=== PATIENT | female | born 1945 | race Hispanic/Latino ===

== ENCOUNTER 2016-11-26 06:25 | Inpatient (IN) ==
[2016-11-24 14:44] LABS: Appearance,Urine HAZY; Bacteria,Urine 0 /hpf (0); Bilirubin,Urine NEG (NEG); Color,Urine YELLOW; Glucose,Urine (UA) NEGATIVE (NEG); Leukocyte Esterase,Urine NEG /uL (NEG); Mucus,Urine MANY /hpf (0); Nitrate,Urine NEG (NEG); Protein,Urine NEG (NEG); Urine Blood 0.03 mg/dL (<0.03); Urine RBC 3 /hpf (0-1); Urine Squamous Epithelial Cell 2 /hpf (0-4); Urine WBC 3 /hpf (0-4); Urobilinogen,Urine NEG (NEG)
[2016-11-24 14:50] LABS: Basophils # (Auto) 0 K/mcL (0.0-0.3); Basophils % (Auto) 0.5 % (0.0-2.0); Eosinophils # (Auto) 0.1 K/mcL (0.0-0.7); Eosinophils % (Auto) 1.7 % (0.0-7.0); Lymphocytes # (Auto) 2.2 K/mcL (1.5-4.8); Lymphocytes % (Auto) 29.1 % (15.5-49.0); Mean Cell Volume 96.3 fL (80.0-100.0); Mean Corpuscular HGB Conc 33.1 g/dL (31.0-36.0); Mean Corpuscular Hemoglobin 31.9 pg (26.0-34.0); Monocytes # (Auto) 0.5 K/mcL (0.1-0.9); Monocytes % (Auto) 6.7 % (1.0-12.0); Platelet Count 346 K/mcL (140-440); RBC 4.83 M/mcL (4.00-5.20); Red Cell Distribution Width 13.8 % (11.5-14.5)
[2016-11-24 15:02] LABS: Blood Urea Nitrogen 12 mg/dl (8-23)
[~2016-11-26 06:25] MED LIST: ceFAZolin 1 GM VIAL IV SCH
[2016-11-26] MEDS ORDERED: KETOROLAC 30 MG, ROPIVACAINE HCL/PF 49.5 ML, EPINEPHrine 0.5 MG, 0.9 % SODIUM CHLORIDE ... IJ SCH (06:30)
[2016-11-26] MEDS ORDERED: PROPOFOL 200 MG/20 ML VIAL IV ONE (08:57)
[2016-11-26] MEDS ORDERED: LIDOCAINE HCL/PF 100 MG/5 ML SYRINGE IV ONE (08:57)
[2016-11-26] MEDS ORDERED: ONDANSETRON 4 MG/2 ML VIAL ONE (08:57)
[2016-11-26] MEDS ORDERED: PHENYLEPHRINE 10 MG/ML VIAL ONE (08:57)
[2016-11-26] MEDS ORDERED: KETAMINE 10 MG/ML ML ONE (08:57)
[2016-11-26] MEDS ORDERED: MIDAZOLAM 2 MG/2 ML VIAL ONE (08:57)
[2016-11-26] MEDS ORDERED: GLYCOPYRROLATE 0.2 MG/ML VIAL IV ONE (08:57)
[2016-11-26] MEDS ORDERED: MAGNESIUM HYDROXIDE 30 ML ORAL.SUSP PO PRN (10:14)
[2016-11-26] MEDS ORDERED: TRANEXAMIC ACID 1,000 MG/10 ML VIAL IV ONE (10:14)
[2016-11-26] MEDS ORDERED: POLYETHYLENE GLYCOL 3350 17 GM PACKET PO PRN (10:14)
[2016-11-26] MEDS ORDERED: BISACODYL 10 MG SUPP.RECT PR PRN (10:14)
[2016-11-26] MEDS ORDERED: FLEETS ADULT ENEMA PR PRN (10:14)
[2016-11-26] MEDS ORDERED: ONDANSETRON 4 MG/2 ML VIAL IV PRN ×2 (10:14→10:16)
[2016-11-26] MEDS ORDERED: BENZOCAINE/MENTHOL 1 LOZENGE PO PRN ×2 (10:14→10:16)
[2016-11-26] MEDS ORDERED: fentaNYL 100 MCG/2 ML VIAL IV PRN (10:16)
[2016-11-26] MEDS ORDERED: IPRATROPIUM/ALBUTEROL 3 ML AMPUL.NEB NEB PRN (10:16)
[2016-11-26] MEDS ORDERED: METOPROLOL TARTRATE 5 MG/5 ML VIAL IV PRN (10:16)
[2016-11-26] MEDS ORDERED: MEPERIDINE 25 MG/ML SYRINGE IV PRN (10:16)
[2016-11-26] MEDS ORDERED: METHOCARBAMOL 1,000 MG/10 ML VIAL IV PRN (10:16)
[2016-11-26] MEDS ORDERED: HYDROmorphone 2 MG/ML SYRINGE IV PRN (10:16)
[2016-11-26] MEDS ORDERED: ePHEDrine 50 MG/ML AMPUL IV PRN (10:16)
[2016-11-26] MEDS ORDERED: GENTAMICIN SULFATE 800 MG/20 ML VIAL IR ONE (10:24)
--- NOTE | 2016-11-26 10:28 | Orthopedic Procedure Note ---
Date of procedure: Note initiated : 11/26/16 at 10:26 am Service Date, if different from initiated Date: [] Pre-op diagnosis: Painful left knee replacement Post-op diagnosis: same Procedure: synovectomy, liner exchange Grafts/Implants: SNN liner Anesthesia: GETA Surgeon: Alex Barry Finishing Area Operator: Mauricio Godfrey Estimated blood loss: 100 Pathology: other (synovial bx) Condition: stable Disposition: PACU
[2016-11-26] MEDS ORDERED: LACTATED RINGERS 1,000 ML IV SCH (10:30)
[2016-11-26] MEDS ORDERED: ACETAMINOPHEN 1,000 MG/100 ML BOTTLE IV SCH (11:00)
[2016-11-26] MEDS ORDERED: MEPERIDINE 25 MG/ML SYRINGE IV ONE (11:42)
--- NOTE | 2016-11-26 12:14 | XRay Report ---
CLINICAL INFORMATION: Post-op total knee COMPARISON: None. FINDINGS: Total knee prostheses is anatomically aligned. No osseous abnormalities. Soft tissue swelling seen as expected IMPRESSION: Negative Interpreted and Authenticated by: Jayme Key 11/26/16
--- NOTE | 2016-11-26 12:46 | Operative Note ---
DATE OF OPERATION: 11/26/2016 PREOPERATIVE DIAGNOSIS: Painful left total knee replacement. POSTOPERATIVE DIAGNOSIS: Synovitis over the left patella and flexion instability of the left knee. OPERATION: 1. Liner exchange of the tibial liner. 2. Synovectomy peripatellar area. SURGEON: Alex Barry MD PHLEBOTOMIST MEDICAL LAB ASSISTANT: Mauricio Godfrey PA-C ANESTHESIA: General done by Dr. Rose. SUMMARY OF PROCEDURE: General anesthesia was attained. After prepping and draping the patient's previous incision was reopened. The incision was taken down sharply to the quadriceps and medial retinacular layer. These two structures were split longitudinally. I freed up the patella which showed a little bit of low baja on preoperative x-rays. I could tawanda the patella until I did perform a lateral release. The patella was then mobilized laterally. The patella was nearly covered with a thickened synovium. This was debrided sharply with a Bovie and knife. The patella itself showed an absolutely pristine surface and was not loose on probing with a Fentress elevator. Attention was then turned to the weightbearing joint. We examined the joint and there was subtle instability medially and laterally in flexion. I therefore did trials with slightly thicker inserts and we used the orthosensor technology to check the gap balancing. We got an excellent combination of stability on the computer system with a 13 mm insert. A balance was noted between the medial and lateral compartments well within the balanced zone on the ortho extensor. We therefore inserted a 13 mm high flexion component. The wound was copiously irrigated. The knee was injected with poly mobile solution for postoperative analgesia. No tourniquet was used. After vigorous irrigation and then soaking the joint in IrriSept, Irrisept was irrigated. The quadriceps and medial retinaculum were closed in 30 degrees of flexion. The quadriceps was closed with buried #2 FiberWire sutures. The medial retinaculum was closed with a running Maxon and the quadriceps oversewn with a running 0 Maxon as well. The subcutaneous tissue was closed with 2-0 Monocryl. The skin was closed with Dermabond. A sterile compressive dressing was applied. During the surgery we took two swabs for culture and one synovial biopsy which was also sent for culture. ESTIMATED BLOOD LOSS: 100 mL TOURNIQUET: None. [email or web address] Job ID: [id number] Doc ID: [id number] Alex ROJASD
[2016-11-26] MEDS: 0.9 % SODIUM CHLORIDE 1,000 ML IV SCH ×3 (13:35→21:47)
[2016-11-26] MEDS: 0.9 % SODIUM CHLORIDE 10 ML SYRINGE IV SCH ×2 (13:43→21:50)
[2016-11-26] MEDS: HYDROcodone/APAP 10/325MG TABLET PO PRN ×3 (14:54→23:17)
[2016-11-26] MEDS: METHOCARBAMOL 750 MG TABLET PO PRN (17:09)
[2016-11-26] MEDS: ceFAZolin 1 GM VIAL IV SCH (17:09)
[2016-11-26] MEDS: LISINOPRIL 20 MG TABLET PO SCH (20:59)
[2016-11-26] MEDS: DOCUSATE SODIUM 100 MG CAPSULE PO SCH (21:00)
[2016-11-26] MEDS: FISH OIL 1,000 MG CAPSULE PO SCH (21:00)
[2016-11-26] MEDS: ASPIRIN 325 MG ENTERIC COATED TABLET PO SCH (21:00)
[2016-11-26] MEDS: ASCORBIC ACID 500 MG TABLET PO SCH (21:00)
[2016-11-26] MEDS: traZODone HCL 50 MG TABLET PO SCH (21:00)
[2016-11-26] MEDS: SENNOSIDES 1 TABLET PO SCH (21:00)
[2016-11-26] MEDS: MAGNESIUM OXIDE 400 MG TABLET PO SCH (21:00)
[2016-11-26] MEDS: GABAPENTIN 300 MG CAPSULE PO SCH (21:01)
[2016-11-26] MEDS: VERAPAMIL HCL 300 MG PO SCH (21:07)
[2016-11-26] MEDS: LATANOPROST OPHTH DROPS 2.5ML BOTTLE OU SCH (21:07)
[2016-11-27] MEDS: ceFAZolin 1 GM VIAL IV SCH (01:04)
[2016-11-27] MEDS: HYDROcodone/APAP 10/325MG TABLET PO PRN ×4 (04:07→18:39)
[2016-11-27] MEDS: 0.9 % SODIUM CHLORIDE 10 ML SYRINGE IV SCH ×3 (05:27→21:53)
--- NOTE | 2016-11-27 06:33 | Orthopedic Progress Note ---
Subjective Patient information: Note initiated : 11/27/16 at 6:31 am Service Date, if different from initiated Date: [] Patient: Georgette Zepeda 71 y/o F admitted on 11/26/16 for Left Total Knee Arthroplasty Revision. Chief Complaint: [] Principal diagnosis: had knee replacement revision yesterday Objective Vital signs: Vital Signs Temp Pulse Resp BP Pulse Ox 11/27/16 04:30 94 11/27/16 04:11 98.9 F 91 H 18 151/83 85 L 11/27/16 00:00 97.5 F 80 16 122/68 95 11/26/16 21:00 98.4 F 70 18 120/68 91 11/26/16 17:00 66 11/26/16 15:38 98.4 F 66 16 138/84 93 11/26/16 14:36 66 16 138/84 93 11/26/16 14:14 70 11/26/16 13:30 63 16 132/79 96 11/26/16 13:00 68 16 132/79 94 11/26/16 12:45 66 16 120/75 96 11/26/16 12:30 66 16 112/73 96 11/26/16 12:15 67 16 117/76 94 11/26/16 12:00 73 16 128/76 91 11/26/16 11:45 70 16 106/42 91 11/26/16 11:23 98.0 F 71 12 127/67 95 11/26/16 11:08 85 18 130/60 98 11/26/16 11:03 83 18 112/58 96 11/26/16 10:58 88 14 116/48 98 11/26/16 10:53 82 22 129/48 98 11/26/16 10:48 87 16 133/46 98 11/26/16 10:43 80 16 123/53 99 11/26/16 10:38 98.2 F 88 20 108/62 98 11/26/16 07:32 97.1 F 90 16 146/76 90 Intake and Output 11/26/16 11/27/16 11/27/16 21:59 05:59 13:59 Intake Total 2070 / 2070 100 / 100 Output Total 2300 / 2300 750 / 750 Balance -230 / -230 -650 / -650 Intake: IV 820 / 820 Sodium Chloride 0.9% 1,000 ml @ 820 / 820 100 mls/hr IV .Q10H [facility] Rx#: [id number] Oral 1250 / 1250 100 / 100 Output: Urine Catheter Amount 2300 / 2300 750 / 750 Other: Meal Dinner Percent of Meal Consumed 75% Feeding Ability Independent Intake & Output: Intake & Output 11/26/16 11/27/16 11/27/16 21:59 05:59 13:59 Intake Total 2070 / 2070 100 / 100 Output Total 2300 / 2300 750 / 750 Balance -230 / -230 -650 / -650 Intake: IV 820 / 820 Sodium Chloride 0.9% 1,000 ml @ 820 / 820 100 mls/hr IV .Q10H [facility] Rx#: [id number] Oral 1250 / 1250 100 / 100 Output: Urine Catheter Amount 2300 / 2300 750 / 750 Other: Meal Dinner Percent of Meal Consumed 75% Feeding Ability Independent Incision clean and dry: Yes Dressing: Yes clean Weight bearing status: full Neurological exam IM: Yes motor sensory intact - Diagnostic Results Knee x-ray: image reviewed (well aligned TKR; no complications) - Labs CBC & BMP: 11/24/16 13:42 11/24/16 13:42 Labs: Orthopedic Labs 11/24/16 13:42 PT 13.4 INR 1.0 11/27/16 11/24/16 06:06 13:42 Hgb Pending 15.4 H Hct Pending 46.5 Assessment and Plan (1) Aftercare following knee joint replacement surgery doing well. Continue physical thpy Status: Acute Priority: High Qualifiers: Laterality: left Qualified Code(s): Z47.1 - Aftercare following joint replacement surgery; Z96.652 - Presence of left artificial knee joint
[2016-11-27] MEDS: 0.9 % SODIUM CHLORIDE 1,000 ML IV SCH ×2 (06:37→15:24)
[2016-11-27] MEDS: FAMOTIDINE 20 MG TABLET PO SCH (09:44)
[2016-11-27] MEDS: LEVOTHYROXINE 25 MCG TABLET PO SCH (09:44)
[2016-11-27] MEDS: OMEPRAZOLE 20 MG CAPSULE PO SCH (09:44)
[2016-11-27] MEDS: DOCUSATE SODIUM 100 MG CAPSULE PO SCH ×2 (09:44→20:42)
[2016-11-27] MEDS: FLUoxetine HCL 20 MG CAPSULE PO SCH (09:44)
[2016-11-27] MEDS: ASPIRIN 325 MG ENTERIC COATED TABLET PO SCH ×2 (09:44→20:42)
[2016-11-27] MEDS ORDERED: FLU VACC QS2017-18 36MOS UP/PF 60 MCG/0.5 ML SYRINGE IM ONE (10:00)
[2016-11-27] MEDS ORDERED: PNEUMOCOCCAL 23-VAL P-SAC VAC 0.5 ML VIAL IM ONE (10:00)
[2016-11-27] MEDS: METHOCARBAMOL 750 MG TABLET PO PRN (10:18)
--- NOTE | 2016-11-27 11:47 | Surgical Pathology Report ---
HISTOLOGY SPECIMEN MICROSCOPIC DIAGNOSIS SYNOVIUM, LEFT KNEE, BIOPSY: -- CHRONIC SYNOVITIS WITH PAPILLARY HYPERPLASIA. -- NO MALIGNANCY IDENTIFIED. ([email or web address]) CLINICAL HISTORY Left knee pain, presence of left artificial knee joint. GROSS DESCRIPTION Received in formalin labeled with the patient information, is a 1.4 x 1.0 x 0.5 cm roughened, pink-arredondo soft tissue fragment. The margin is inked black and it is sectioned. Totally submitted - one cassette. (STM:[email or web address]) Electronically Signed by: Richie Rosa M.D.
[2016-11-27] MEDS: VERAPAMIL HCL 300 MG PO SCH (20:41)
[2016-11-27] MEDS: LATANOPROST OPHTH DROPS 2.5ML BOTTLE OU SCH (20:41)
[2016-11-27] MEDS: ASCORBIC ACID 500 MG TABLET PO SCH (20:42)
[2016-11-27] MEDS: FISH OIL 1,000 MG CAPSULE PO SCH (20:42)
[2016-11-27] MEDS: MAGNESIUM OXIDE 400 MG TABLET PO SCH (20:42)
[2016-11-27] MEDS: SENNOSIDES 1 TABLET PO SCH (20:42)
[2016-11-27] MEDS: GABAPENTIN 300 MG CAPSULE PO SCH (20:42)
[2016-11-27] MEDS: traZODone HCL 50 MG TABLET PO SCH (20:42)
[2016-11-27] MEDS: LISINOPRIL 20 MG TABLET PO SCH (21:53)
[2016-11-28] MEDS: 0.9 % SODIUM CHLORIDE 1,000 ML IV SCH ×2 (02:43→14:54)
[2016-11-28] MEDS: 0.9 % SODIUM CHLORIDE 10 ML SYRINGE IV SCH ×2 (05:32→14:54)
[2016-11-28] MEDS: OMEPRAZOLE 20 MG CAPSULE PO SCH (07:09)
[2016-11-28] MEDS: LEVOTHYROXINE 25 MCG TABLET PO SCH (07:09)
[2016-11-28] MEDS: HYDROcodone/APAP 10/325MG TABLET PO PRN ×5 (07:11→20:44)
[2016-11-28] MEDS: FLUoxetine HCL 20 MG CAPSULE PO SCH (08:32)
[2016-11-28] MEDS: ASPIRIN 325 MG ENTERIC COATED TABLET PO SCH ×2 (08:32→20:44)
[2016-11-28] MEDS: FAMOTIDINE 20 MG TABLET PO SCH (08:32)
[2016-11-28] MEDS: DOCUSATE SODIUM 100 MG CAPSULE PO SCH ×2 (08:32→20:43)
[2016-11-28] MEDS ORDERED: PNEUMOCOCCAL 23-VAL P-SAC VAC 0.5 ML VIAL IM ONE (08:45)
[2016-11-28] MEDS ORDERED: FLU VACC QS2017-18 36MOS UP/PF 60 MCG/0.5 ML SYRINGE IM ONE (08:45)
--- NOTE | 2016-11-28 09:56 | Discharge Summary ---
Providers - Providers Patient information: Note initiated : 11/28/16 at 9:54 am Service Date, if different from initiated Date: [] Patient: Georgette Zepeda 71 y/o F admitted on 11/26/16 for Left Total Knee Arthroplasty Revision. Chief Complaint: [] Date of admission: 11/26/16 Discharge date: 11/28/16 Hospitalization Hospital course: Patient was admitted after a total knee arthroplasty for PT and post operative pain control. Discharge diagnosis: Left TKA Procedures: Patient had an uncomplicated Left total knee replacement. Ortho Discharge - TKA - Patient Instructions Diet: Regular Diet Activity: activity as tolerated Total Knee Protocol: For Total Knee: Start ROM CARMELO with stationary bike or rocking chair. Work on gaining full extension of knee. Posterior dislocation precautions provided. Hip abductor strengthening and gait training instructions provided. Apply Cryocuff as instructed. Dressing Care: May shower in 2 days Patient Education: Revision Total Joint Arthroplasty (DC) Additional Instructions: Discharge Instructions: Do the exercises at home that physical therapy gave you. Take your prescription, photo ID, insurance cards, and current medication list with you to your first physical therapy appointment. Take your prescription to pickle pumper any medication or equipment (such as walker, crutches, toilet riser or C.P.M.) Wear comfortable clothing for your physical therapy. Weight bearing as tolerated. You have Dermabond (a dressing with a mesh-like appearance), leave open to air. Do not remove this dressing. You may start showering on post op day #2. The Dermabond dressing can get wet, do not scrub dressing. Pat dry. To avoid constipation while taking any narcotic pain medication, take an over the counter stool softener/laxative. Use your Cryocuff or ice packs as directed, on for 20 minutes at a time throughout the day. This and elevation will help with pain and swelling. Call your physician for fevers above 100.5 or pain not controlled by medication. Your prescriptions are with your discharge information. Some medications were electronically transmitted to your pharmacy of choice. - Follow Up Plan Follow Up Appointments: Mauricio Godfrey PA-C [Physician Child Care Group Leader] - 12/11/16 9:30 am Disposition: Home Health Service Prognosis: Good Rehab Potential: Good Overall status at discharge: patient is progressing back to baseline - Orders For Discharge Additional Discharge Orders: Physical Therapy at Discharge - TKA Location: Determined By Patient Pending Studies Resuscitation Status Full Code Diet Regular Diet Start Emily Sep 28 Lunch Hydrocodone Bitart/Acetaminophen (Winkelman 10/325mg) 0 tab PO Q4HP PRN PRN Reason: Pain Last Admin: 11/28/16 07:11 Dose: 2 tab Admin: 11/27/16 18:39 Dose: 2 tab Admin: 11/27/16 14:03 Dose: 2 tab Admin: 11/27/16 09:05 Dose: 2 tab Admin: 11/27/16 04:07 Dose: 2 tab Admin: 11/26/16 23:17 Dose: 1 tab Admin: 11/26/16 20:55 Dose: 1 tab Admin: 11/26/16 14:54 Dose: 2 tab Ascorbic Acid (Vitamin C) 1,000 mg PO HS [facility] Last Admin: 11/27/16 20:42 Dose: 1,000 mg Admin: 11/26/16 21:00 Dose: 1,000 mg Aspirin (Ecotrin) 325 mg PO BID [facility] Last Admin: 11/28/16 08:32 Dose: 325 mg Admin: 11/27/16 20:42 Dose: 325 mg Admin: 11/27/16 09:44 Dose: 325 mg Admin: 11/26/16 21:00 Dose: 325 mg Docusate Sodium (Colace) 100 mg PO BID [facility] Last Admin: 11/28/16 08:32 Dose: 100 mg Admin: 11/27/16 20:42 Dose: 100 mg Admin: 11/27/16 09:44 Dose: 100 mg Admin: 11/26/16 21:00 Dose: 100 mg Famotidine (Pepcid) 20 mg PO DAILY [facility] Last Admin: 11/28/16 08:32 Dose: 20 mg Admin: 11/27/16 09:44 Dose: 20 mg Fish Oil (Fish Oil) 1,000 mg PO HS [facility] Last Admin: 11/27/16 20:42 Dose: 1,000 mg Admin: 11/26/16 21:00 Dose: 1,000 mg Fluoxetine HCl (Prozac) 20 mg PO DAILY [facility] Last Admin: 11/28/16 08:32 Dose: 20 mg Admin: 11/27/16 09:44 Dose: 20 mg Gabapentin (Neurontin) 300 mg PO HS [facility] Last Admin: 11/27/16 20:42 Dose: 300 mg Admin: 11/26/16 21:01 Dose: 300 mg Sodium Chloride (Sodium Chloride 0.9%) 1,000 mls @ 100 mls/hr IV .Q10H [facility] Last Admin: 11/28/16 02:43 Dose: Admin: 11/27/16 15:24 Dose: Admin: 11/27/16 06:37 Dose: Not Given Admin: 11/26/16 21:47 Dose: 100 mls/hr Infusion: 11/26/16 21:47 Dose: 100 mls/hr Admin: 11/26/16 21:09 Dose: Not Given Admin: 11/26/16 13:35 Dose: 100 mls/hr Latanoprost (Xalatan Ophth Drops) 1 gtt OU HS [facility] Last Admin: 11/27/16 20:41 Dose: 1 gtt Admin: 11/26/16 21:07 Dose: 1 gtt Levothyroxine Sodium (Synthroid) 25 mcg PO QAMAC [facility] Last Admin: 11/28/16 07:09 Dose: 25 mcg Admin: 11/27/16 09:44 Dose: 25 mcg Lisinopril (Zestril) 40 mg PO HS [facility] Last Admin: 11/27/16 21:53 Dose: 40 mg Admin: 11/26/16 20:59 Dose: 40 mg Magnesium Oxide (Magnesium Oxide) 400 mg PO HS [facility] Last Admin: 11/27/16 20:42 Dose: 400 mg Admin: 11/26/16 21:00 Dose: 400 mg Methocarbamol (Robaxin) 750 mg PO HSP PRN PRN Reason: Spasms Last Admin: 11/27/16 10:18 Dose: 750 mg Admin: 11/26/16 17:09 Dose: 750 mg Morphine Sulfate (Morphine) 0 mg IV Q1HP PRN PRN Reason: Pain Last Admin: 11/27/16 10:19 Dose: 4 mg Admin: 11/26/16 21:47 Dose: 2 mg Admin: 11/26/16 20:56 Dose: 2 mg Admin: 11/26/16 17:10 Dose: 4 mg Admin: 11/26/16 15:18 Dose: 2 mg Omeprazole (Prilosec) 40 mg PO ACB [facility] Last Admin: 11/28/16 07:09 Dose: 40 mg Admin: 11/27/16 09:44 Dose: 40 mg Verapamil Hcl [ Verapamil Er Pm] 300 Mg Cap 1 dose PO HS [facility] Last Admin: 11/27/16 20:41 Dose: 1 dose Admin: 11/26/16 21:07 Dose: 1 dose Senna (Senokot) 2 tab PO HS [facility] Last Admin: 11/27/16 20:42 Dose: 2 tab Admin: 11/26/16 21:00 Dose: 2 tab Sodium Chloride (Saline Flush) 10 ml IV Q8 [facility] Last Admin: 11/28/16 05:32 Dose: 10 ml Admin: 11/27/16 21:53 Dose: 10 ml Admin: 11/27/16 14:04 Dose: 10 ml Admin: 11/27/16 05:27 Dose: Not Given Admin: 11/26/16 21:50 Dose: Not Given Admin: 11/26/16 13:43 Dose: Trazodone HCl (Desyrel) 100 mg PO HS [facility] Last Admin: 11/27/16 20:42 Dose: 100 mg Admin: 11/26/16 21:00 Dose: 100 mg Shift Summary 11/28/16 03:12 Shift Summary by Elly Singer A/O x4. Has been sleeping most of the shift. IV in LFA is saline locked. Incision to L knee is well approximated, dermabond in place. MANOLO wrap was removed during day shift because patient reported it was too tight. MANOLO wrap was reapplied this shift per patient request. MANOLO wrap is CDI. Pain controlled with 2 tab Winkelman x1 with good results. O2 sats remain in low 90's on 2L via NC. Voiding well. Up with 1 assist and FWW. Will d/c home today. Initialized on 11/28/16 03:12 - END OF NOTE
--- NOTE | 2016-11-28 10:12 | Orthopedic Progress Note ---
Subjective Patient information: Note initiated : 11/28/16 at 10:09 am Service Date, if different from initiated Date: [] Patient: Georgette Zepeda 71 y/o F admitted on 11/26/16 for Left Total Knee Arthroplasty Revision. Chief Complaint: [] Principal diagnosis: had knee replacement revision yesterday Interval history: Patient is doing well but she would like to go home and she wants to be a little bit stronger before going home. She will go home tomorrow. She denies any CP, SOB, VELASCO, or any other acute symptoms. Objective Vital signs: Vital Signs Temp Pulse Resp BP BP Pulse Ox 11/28/16 08:33 16 95 11/28/16 08:23 16 94 11/28/16 08:00 93 11/28/16 06:28 98.5 F 16 116/72 94 11/28/16 03:53 97.4 F 76 16 131/75 95 11/28/16 00:20 97.0 F 78 18 137/82 93 11/27/16 20:00 98.4 F 79 18 139/75 93 11/27/16 19:51 93 11/27/16 17:40 97.6 F 20 119/67 94 11/27/16 11:47 97.6 F 18 131/69 92 Intake and Output 11/27/16 11/28/16 11/28/16 21:59 05:59 13:59 Intake Total 530 / 530 Output Total 400 / 400 200 / 200 Balance 130 / 130 -200 / -200 Intake: Oral 530 / 530 Output: Void Amount 400 / 400 200 / 200 Other: Meal Dinner Percent of Meal Consumed 75% Feeding Ability Independent # Voids 1 1 Weight 185 lb 8 oz Intake & Output: Intake & Output 11/27/16 11/28/16 11/28/16 21:59 05:59 13:59 Intake Total 530 / 530 Output Total 400 / 400 200 / 200 Balance 130 / 130 -200 / -200 Weight 185 lb 8 oz Intake: Oral 530 / 530 Output: Void Amount 400 / 400 200 / 200 Other: Meal Dinner Percent of Meal Consumed 75% Feeding Ability Independent # Voids 1 1 Incision: Yes healing Incision clean and dry: Yes Weight bearing status: full Neurological exam IM: Yes neurovascular intact Extremities exam IM: No calf tenderness, Yes Foot pink and warm, Yes neurovascular intact - Labs CBC & BMP: 11/28/16 05:18 11/24/16 13:42 Labs: Orthopedic Labs 11/24/16 13:42 PT 13.4 INR 1.0 11/28/16 11/27/16 11/24/16 05:18 06:06 13:42 Hgb 12.2 13.8 15.4 H Hct 36.5 41.2 46.5 Assessment and Plan (1) Aftercare following knee joint replacement surgery 1. Pain is controlled 2. PT going well 3. Patient will stay another night for pain and PT 4. Plan to discharge tomorrow to home with pain medicine 5. Follow up in - with [facility] Status: Acute Priority: High Qualifiers: Laterality: left Qualified Code(s): Z47.1 - Aftercare following joint replacement surgery; Z96.652 - Presence of left artificial knee joint
[2016-11-28] MEDS: traZODone HCL 50 MG TABLET PO SCH (20:43)
[2016-11-28] MEDS: FISH OIL 1,000 MG CAPSULE PO SCH (20:43)
[2016-11-28] MEDS: ASCORBIC ACID 500 MG TABLET PO SCH (20:43)
[2016-11-28] MEDS: SENNOSIDES 1 TABLET PO SCH (20:44)
[2016-11-28] MEDS: GABAPENTIN 300 MG CAPSULE PO SCH (20:44)
[2016-11-28] MEDS: LISINOPRIL 20 MG TABLET PO SCH (20:44)
[2016-11-28] MEDS: MAGNESIUM OXIDE 400 MG TABLET PO SCH (20:44)
[2016-11-28] MEDS: LATANOPROST OPHTH DROPS 2.5ML BOTTLE OU SCH (20:46)
[2016-11-28] MEDS: VERAPAMIL HCL 300 MG PO SCH (20:46)
[2016-11-29] MEDS: 0.9 % SODIUM CHLORIDE 10 ML SYRINGE IV SCH ×2 (01:18→13:40)
[2016-11-29] MEDS: 0.9 % SODIUM CHLORIDE 1,000 ML IV SCH (01:18)
[2016-11-29] MEDS: LEVOTHYROXINE 25 MCG TABLET PO SCH (08:05)
[2016-11-29] MEDS: OMEPRAZOLE 20 MG CAPSULE PO SCH (08:05)
[2016-11-29] MEDS: HYDROcodone/APAP 10/325MG TABLET PO PRN ×2 (08:06→12:12)
[2016-11-29] MEDS: ASPIRIN 325 MG ENTERIC COATED TABLET PO SCH (09:30)
[2016-11-29] MEDS: FAMOTIDINE 20 MG TABLET PO SCH (09:30)
[2016-11-29] MEDS: FLUoxetine HCL 20 MG CAPSULE PO SCH (09:30)
[2016-11-29] MEDS: DOCUSATE SODIUM 100 MG CAPSULE PO SCH (09:30)
== END 2016-11-29 13:25 | disposition home health service (06) | DRG 489 ==
LOC: MEDSUR 06:25
PROVIDERS: ADMIT Orthopaedic Surgery Foot and Ankle Surgery; ATTEND Orthopaedic Surgery Foot and Ankle Surgery